=== PATIENT | female | born 1975 | race African-American/Black ===

== ENCOUNTER 2019-11-30 16:35 | Emergency (ER) | payer OTHER ==
[~2019-11-30] VITALS: Ht 162.6 cm; Wt 65.8 kg
[2019-11-30 19:03] VITALS: BP 124/91
== END 2019-11-30 19:19 | disposition home or self-care (01) ==
LOC: ER 16:35
DX: H66.92 Otitis media, unspecified, left ear (principal); Z88.6 Allergy status to analgesic agent

== ENCOUNTER 2021-10-28 10:43 | Emergency (ER) | payer MEDICAID ==
[~2021-10-28] VITALS: Ht 162.6 cm; Wt 61.2 kg
[2021-10-28 15:20] VITALS: BP 138/82
== END 2021-10-28 15:23 | disposition home or self-care (01) ==
LOC: ER 10:43
DX: J06.9 Acute upper respiratory infection, unspecified (principal); I10 Essential (primary) hypertension; Z88.8 Allergy status to other drugs, medicaments and biological substances; Z20.822 Contact with and (suspected) exposure to COVID-19
CPT/HCPCS: 36415; 87426; 93005

== ENCOUNTER 2021-11-11 06:42 | Emergency (ER) | payer MEDICAID ==
[~2021-11-11] VITALS: Ht 162.6 cm; Wt 61.2 kg
[2021-11-11 08:20] VITALS: BP 145/105
[2021-11-11] MEDS ORDERED: AMOX-277 PO (08:20)
[2021-11-11] MEDS ORDERED: BENZ100C19 PO (08:20)
[2021-11-11] MEDS ORDERED: LISINOPRIL 10 MG TAB PO ONE (08:30)
== END 2021-11-11 09:53 | disposition home or self-care (01) ==
LOC: ER 06:42
DX: J06.9 Acute upper respiratory infection, unspecified (principal); I10 Essential (primary) hypertension; Z20.822 Contact with and (suspected) exposure to COVID-19
CPT/HCPCS: 36415; 71045; 87426; 93005

== ENCOUNTER 2021-11-28 21:33 | Emergency (ER) | payer MEDICAID ==
[~2021-11-28] VITALS: Ht 162.6 cm; Wt 61.2 kg
[~2021-11-28 21:33] MED LIST: AMOX-277 PO; BENZ100C19 PO
[2021-11-28 23:19] LABS: Basophils # (auto) 0 10 ^3/uL (0-0.2); Basophils % (auto) 0.6 % (0.0-2.0); Eosinophils # (auto) 0.2 10 ^3/uL (0-0.8); Eosinophils % (auto) 3.2 % (0.0-7.0); Hemoglobin 10.7 g/dL (12.2-16.2); Lymphocytes # (auto) 2.3 10 ^3/uL (0.4-5.4); Lymphocytes % (auto) 35.1 % (10.0-50.0); Mean Corpuscular Hemoglobin 23.6 pg (28.0-32.0); Mean Corpuscular Hgb Conc. 31.6 g/dL (32.0-36.0); Mean Corpuscular Volume 74.7 fL (80.0-100.0); Monocytes # (auto) 0.5 10 ^3/uL (0-1.3); Monocytes % (auto) 7.6 % (0.0-12.0); Neutrophils # (auto) 3.5 10 ^3/uL (1.6-8.6); Neutrophils % (auto) 53.5 % (37.0-80.0); Nucleated Red Blood Cells % 0.1 %; Red Blood Cells 4.54 10^6/uL (4.0-5.20); Red Cell Distribution Width 18.3 % (11.8-14.3); White Blood Cell 6.5 10^3/uL (4.4-10.8)
[2021-11-28 23:34] LABS: Albumin 3.9 g/dL (3.4-5.0); Calcium 9.1 mg/dL (8.5-10.1); Magnesium 3.1 mg/dL (1.6-2.6); Potassium 3.4 mmol/L (3.5-5.1)
[2021-11-28 23:41] LABS: BUN/Creatinine Ratio 11.6; Bilirubin, Total 0.4 mg/dL (0.2-1.0)
[2021-11-29 08:22] LABS: Urine Bacteria NONE SEEN /hpf (None Seen); Urine Blood 3+ /uL (Negative); Urine Mucus MODERATE (None Seen); Urine Specific Gravity 1.023 (1.001-1.035); Urine WBC 331 /hpf (0 - 5); Urine WBC Clumps PRESENT /hpf (None Seen)
[2021-11-29] MEDS ORDERED: PERCOT PO (08:43)
[2021-11-29 09:00] VITALS: BP 138/104
== END 2021-11-29 09:26 | disposition home or self-care (01) ==
LOC: ER 21:35
DX: R07.89 Other chest pain (principal); M25.532 Pain in left wrist; M25.531 Pain in right wrist; I10 Essential (primary) hypertension; Z79.2 Long term (current) use of antibiotics; Z79.899 Other long term (current) drug therapy; Z88.8 Allergy status to other drugs, medicaments and biological substances
CPT/HCPCS: 36415; 71045; 80053; 81001; 83735; 84443; 84484; 85025; 93005

== ENCOUNTER 2021-12-30 12:44 | Emergency (ER) | payer MEDICAID ==
[~2021-12-30] VITALS: Ht 162.6 cm; Wt 61.2 kg
[~2021-12-30 12:44] MED LIST changes: +PERCOT PO
[2021-12-30] MEDS ORDERED: methylPREDNISolone SOD SUCC 125 MG/2 ML VL IM ONE (14:15)
[2021-12-30] MEDS ORDERED: cefTRIAXone SOD 1,000 MG VL IM ONE (14:15)
[2021-12-30] MEDS ORDERED: BENZ100C19 PO (14:21)
[2021-12-30] MEDS ORDERED: AMOX-277 PO (14:21)
[2021-12-30 14:22] VITALS: BP 144/99
== END 2021-12-30 14:53 | disposition home or self-care (01) ==
LOC: ER 12:44
DX: J06.9 Acute upper respiratory infection, unspecified (principal); Z20.822 Contact with and (suspected) exposure to COVID-19
CPT/HCPCS: 36415; 71045; 87426; 93005; 96372; 99285; J0696; J2930

== ENCOUNTER 2022-09-22 15:15 | Emergency (ER) | payer MEDICAID | END 2022-09-22 17:23 | disposition left against medical advice (07) | LOC: ER 15:15 | DX: R05.9 Cough, unspecified (principal); Z53.21 Procedure and treatment not carried out due to patient leaving prior to being seen by health care provider ==

== ENCOUNTER 2023-05-28 06:14 | Emergency (ER) | payer MEDICAID ==
[~2023-05-28] VITALS: Ht 162.6 cm; Wt 61.0 kg
[~2023-05-28 06:14] MED LIST changes: -AMOX-277 PO; +AMOX875T4 PO
[2023-05-28] MEDS ORDERED: DEXT1SYP9 PO (07:48)
[2023-05-28] MEDS ORDERED: AZIT500T PO (07:48)
[2023-05-28 08:11] VITALS: BP 155/113; PULSE 83; RESP 18; TEMP 98.4; O2SAT 100
== END 2023-05-28 08:18 | disposition home or self-care (01) ==
LOC: ER 06:14
DX: B34.9 Viral infection, unspecified (principal); I10 Essential (primary) hypertension; Z98.890 Other specified postprocedural states

== ENCOUNTER 2025-04-13 11:34 | Inpatient (IN) | payer MEDICAID ==
[~2025-04-13] VITALS: Ht 167.6 cm; Wt 60.0 kg
[~2025-04-13 11:34] MED LIST changes: +AZIT500T PO; +DEXT1SYP9 PO
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
[2025-04-13 12:21] LABS: Urine Bacteria FEW /hpf (None Seen); Urine Blood Negative /uL (Negative); Urine Budding Yeast OCCASIONAL /hpf (None Seen); Urine Clarity Clear (Clear); Urine Color Colorless (Yellow); Urine Protein, UAD Negative (Negative); Urine Specific Gravity 1.003 (1.001-1.035); Urine Squamous Epithelial Cell FEW /hpf (<5); Urine Urobilinogen Normal (Negative); Urine WBC < 1 /HPF (0-5)
[2025-04-13 13:02] LABS: Eosinophils # (auto) 0 10 ^3/uL (0-0.8); Eosinophils % (auto) 0.1 % (0.0-7.0); Lymphocytes # (auto) 1.8 10 ^3/uL (0.4-5.4)
[2025-04-13 13:04] LABS: Basophils # (auto) 0 10 ^3/uL (0-0.2); Basophils % (auto) 0.3 % (0.0-2.0); Hematocrit 32.8 % (36.0-46.0); Hemoglobin 10.1 g/dL (12.2-16.2); Lymphocytes % (auto) 16.7 % (10.0-50.0); Mean Corpuscular Hemoglobin 21.1 pg (28.0-32.0); Mean Corpuscular Hgb Conc. 30.7 g/dL (32.0-36.0); Mean Corpuscular Volume 68.9 fL (80.0-100.0); Monocytes # (auto) 0.7 10 ^3/uL (0-1.3); Neutrophils # (auto) 8.5 10 ^3/uL (1.6-8.6); Neutrophils % (auto) 76.9 % (37.0-80.0); Nucleated Red Blood Cells % 0.1 %; Platelet Count (auto) 303 10^3/uL (140-450); Red Blood Cells 4.77 10^6/uL (4.0-5.20)
[2025-04-13 13:12] LABS: Chloride 105 mmol/L (98-107); Potassium 3.6 mmol/L (3.5-5.1); Sodium 139 mmol/L (136-145)
[2025-04-13 13:13] LABS: Anion Gap 10 (5-15); Carbon Dioxide 24 mmol/L (20-31)
[2025-04-13 13:17] LABS: Calcium 10.5 mg/dL (8.7-10.4)
[2025-04-13 13:18] LABS: BUN/Creatinine Ratio 9.2 (10.0-20.0); Blood Urea Nitrogen 8 mg/dL (9-23); Glucose 99 mg/dL (74-106)
--- NOTE | 2025-04-13 13:41 | DVH ---
EXAM: CT CT AB PEL WO CON-NO ORAL OR IV INDICATION: pain TECHNIQUE: Volumetric multidetector CT images of the abdomen and pelvis were obtained without contras t. All CT scans at this facility use dose modulation, iterative reconstruction, and/or weight based d osing when appropriate to reduce radiation dose to as low as reasonably achievable. COMPARISON: None FINDINGS: [LOWER CHEST]: The partially visualized lung bases are clear without a pleural effusion. The cardiac size is normal without pericardial effusion. [LIVER]: Normal hepatic size without suspicious focal lesion. [GALLBLADDER AND BILIARY TREE]: No cholelithiasis. [SPLEEN]: Unremarkable. [PANCREAS]: Unremarkable. [ADRENAL GLANDS]: Unremarkable. [KIDNEYS]: No hydronephrosis. No nephroureterolithiasis. No suspicious focal lesion. [BLADDER]: Unremarkable for the degree of distention. [REPRODUCTIVE ORGANS]: Unremarkable. [BOWEL/MESENTERY]: Stomach is normal. No CT evidence of bowel obstruction. Normal appendix. [ASCITES]: Absent. [LYMPHADENOPATHY]: No pathologically enlarged lymph nodes by CT size criteria. [VASCULATURE]: No aneurysmal dilatation. [ABDOMINAL WALL]: Unremarkable. [MUSCULOSKELETAL]: No acute fracture or aggressive focal osseous lesion. Multifocal degenerative rader ge of the visualized spine. IMPRESSION: 1. No acute abdominal finding.
[2025-04-13 15:53] VITALS: PULSE 76; RESP 20; O2SAT 98
[2025-04-13] MEDS: cloNIDine HCL 0.1 MG TAB PO ONE (16:39)
[2025-04-13] MEDS: SODIUM CHLORIDE 0.9% 500 ML IV ONE (16:40)
[2025-04-13] MEDS ORDERED: ONDANSETRON HCL 4 MG/2 ML VIAL IV PRN (18:30)
[2025-04-13] MEDS ORDERED: HYDROcodone-ACET 5/325MG TAB PO PRN (18:30)
[2025-04-13] MEDS ORDERED: ACETAMINOPHEN 325 MG TAB PO PRN (18:30)
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
[2025-04-13] MEDS: LACTATED RINGER'S 1,000 ML IV ONE (18:50)
[2025-04-13 19:15] LABS: % Iron Saturation 5.4 % (15-50)
[2025-04-13 19:45] LABS: Basophils # (auto) 0 10 ^3/uL (0-0.2); Basophils % (auto) 0.2 % (0.0-2.0); Eosinophils # (auto) 0 10 ^3/uL (0-0.8); Eosinophils % (auto) 0.4 % (0.0-7.0); Hematocrit 29.6 % (36.0-46.0); Hemoglobin 9.4 g/dL (12.2-16.2); Lymphocytes # (auto) 2.4 10 ^3/uL (0.4-5.4); Lymphocytes % (auto) 22.5 % (10.0-50.0); Mean Corpuscular Hemoglobin 21.6 pg (28.0-32.0); Mean Corpuscular Hgb Conc. 31.9 g/dL (32.0-36.0); Mean Corpuscular Volume 67.9 fL (80.0-100.0); Monocytes # (auto) 0.8 10 ^3/uL (0-1.3); Neutrophils # (auto) 7.5 10 ^3/uL (1.6-8.6); Neutrophils % (auto) 69.9 % (37.0-80.0); Platelet Count (auto) 256 10^3/uL (140-450); Red Blood Cells 4.35 10^6/uL (4.0-5.20); Red Cell Distribution Width 19.2 % (11.8-14.3); White Blood Cell 10.7 10^3/uL (4.4-10.8)
[2025-04-13 19:49] VITALS: PULSE 100; RESP 18; O2SAT 96
[2025-04-13] MEDS: SODIUM CHLOR 0.9% PF (SALINE LOCK) 10ML VIAL/SYR IV SCH (21:34)
[2025-04-14 03:02] LABS: Basophils # (auto) 0 10 ^3/uL (0-0.2); Eosinophils # (auto) 0.1 10 ^3/uL (0-0.8); Hemoglobin 9.2 g/dL (12.2-16.2); Mean Corpuscular Hemoglobin 21.6 pg (28.0-32.0); Mean Corpuscular Volume 68.7 fL (80.0-100.0); Monocytes # (auto) 0.6 10 ^3/uL (0-1.3); White Blood Cell 8.9 10^3/uL (4.4-10.8)
[2025-04-14 03:04] LABS: Basophils % (auto) 0.3 % (0.0-2.0); Eosinophils % (auto) 1.4 % (0.0-7.0); Hematocrit 29.3 % (36.0-46.0); Lymphocytes # (auto) 2.4 10 ^3/uL (0.4-5.4); Mean Corpuscular Hgb Conc. 31.4 g/dL (32.0-36.0); Monocytes % (auto) 7.1 % (0.0-12.0); Neutrophils # (auto) 5.7 10 ^3/uL (1.6-8.6); Neutrophils % (auto) 64.2 % (37.0-80.0); Platelet Count (auto) 252 10^3/uL (140-450); Red Blood Cells 4.26 10^6/uL (4.0-5.20); Red Cell Distribution Width 18.9 % (11.8-14.3)
[2025-04-14 03:26] LABS: Alanine Aminotransferase 12 U/L (7-40); Albumin 3.7 g/dL (3.2-4.8); Alkaline Phosphatase 57 U/L (46-116); Anion Gap 10 (5-15); Aspartate Aminotransferase 23 U/L (<34); BUN/Creatinine Ratio 8.8 (10.0-20.0); Bilirubin, Total 0.8 mg/dL (0.2-1.0); Calcium 9.1 mg/dL (8.7-10.4); Carbon Dioxide 21 mmol/L (20-31); Glucose 90 mg/dL (74-106); Sodium 140 mmol/L (136-145); Total Protein 6.4 g/dL (5.7-8.2)
[2025-04-14 03:27] LABS: Blood Urea Nitrogen 7 mg/dL (9-23); Chloride 109 mmol/L (98-107); Potassium 3.5 mmol/L (3.5-5.1)
[2025-04-14 08:29] VITALS: PULSE 56; RESP 16; O2SAT 98
[2025-04-14] MEDS: PANTOPRAZOLE 40 MG/10 ML VIAL INJ IV SCH (09:58)
[2025-04-14 13:36] LABS: Basophils # (auto) 0 10 ^3/uL (0-0.2); Basophils % (auto) 0.4 % (0.0-2.0); Eosinophils # (auto) 0.1 10 ^3/uL (0-0.8); Eosinophils % (auto) 0.9 % (0.0-7.0); Hematocrit 31.6 % (36.0-46.0); Hemoglobin 9.6 g/dL (12.2-16.2); Lymphocytes # (auto) 2.1 10 ^3/uL (0.4-5.4); Lymphocytes % (auto) 20.1 % (10.0-50.0); Mean Corpuscular Hemoglobin 21.2 pg (28.0-32.0); Mean Corpuscular Hgb Conc. 30.3 g/dL (32.0-36.0); Mean Corpuscular Volume 70.1 fL (80.0-100.0); Monocytes # (auto) 0.6 10 ^3/uL (0-1.3); Monocytes % (auto) 5.9 % (0.0-12.0); Neutrophils # (auto) 7.6 10 ^3/uL (1.6-8.6); Neutrophils % (auto) 72.7 % (37.0-80.0); Nucleated Red Blood Cells % 0.1 %; Platelet Count (auto) 246 10^3/uL (140-450); Red Blood Cells 4.52 10^6/uL (4.0-5.20); Red Cell Distribution Width 19.3 % (11.8-14.3); White Blood Cell 10.5 10^3/uL (4.4-10.8)
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
--- NOTE | 2025-04-14 15:48 | DVHPN2 ---
Subjective Patient reporting rectal bleeding several hours ago. Reviewed: Care Plan, H&P, Labs, Medications Changes from previous H/P or p: No Changes General: Per HPI Objective Vitals Vital Signs Date Time Temp Pulse Resp B/P (MAP) Pulse Ox O2 Delivery O2 Flow Rate FiO2 04/14/25 12:00 65 17 134/91 (105) 99 04/14/25 08:29 Room Air* 0 21 04/14/25 07:30 98.0 98.0 General Appearance: Alert, Oriented X3, Cooperative, No acute distress HEENT: Atraumatic, PERRLA Lungs: Clear to auscultation, Normal air movement Cardiovascular: Normal S1, Normal S2 Abdomen: Normal bowel sounds, Soft, No tenderness Musculoskeletal: Normal sensory function, Normal motor function Skin: Dry, Intact Psych/Mental Status: Mental status NL, Mood NL Medications Current Medications Medications Dose Ordered Sig/[place] Route Start Time Stop Time Status Last Admin Dose Admin Pantoprazole Sodium 40 mg DAILY IV 04/14/25 10:00 04/14/25 09:58 40 MG Sodium Chloride 10 ml Q8HR IV 04/13/25 22:00 04/14/25 05:10 10 ML Acetaminophen 650 mg Q6HP PRN PO 04/13/25 18:30 Acetaminophen/ Hydrocodone Bitart 1 tab Q4HP PRN PO 04/13/25 18:30 Ondansetron HCl 4 mg Q4HP PRN IV 04/13/25 18:30 Laboratory Results Laboratory Tests 04/14/25 02:20 04/14/25 12:25 Chemistry Test 04/14/25 02:20 Albumin 3.7 g/dL (3.2-4.8) Calcium Level 9.1 mg/dL (8.7-10.4) Total Protein 6.4 g/dL (5.7-8.2) LFT Test 04/14/25 02:20 Alanine Aminotransferase (ALT) 12 U/L (7-40) Alkaline Phosphatase 57 U/L (46-116) Aspartate Amino Transferase (AST) 23 U/L (<34) Total Bilirubin 0.8 mg/dL (0.2-1.0) Urinalysis Test 04/13/25 11:53 Urine Color Colorless (Yellow) Urine Clarity Clear (Clear) Urine pH 6.0 (5.0-9.0) Urine Specific [place] 1.003 (1.001-1.035) Urine Protein Negative (Negative) Urine Ketones 1+ (Negative) H Urine Blood Negative /uL (Negative) Urine Nitrite Negative (Negative) Urine Bilirubin Negative (Negative) Urine Urobilinogen Normal mg/dL (Negative) Urine Leukocyte Esterase Negative /uL (Negative) Urine RBC <1 /hpf (0 - 4) Urine Microscopic WBC < 1 /HPF (0-5) Urine Squamous Epithelial Cells Few /hpf (<5) Urine Bacteria Few /hpf (None Seen) H Urine Yeast (Budding) Occasional /hpf (None Urine Glucose Normal mg/dL (Normal) Labs and/or images reviewed: Labs reviewed by me, Image(s) reviewed by me Assessment/Plan Assessment/Plan Impression: -rectal bleeding -primary hypertension -recent right carpal tunnel release surgery -microcytic, hypochromic anemia Plan: -GI consultation: Plans for colonoscopy tomorrow -restart antihypertensives -pain management -continue clear liquid diet -continue with bowel prep -repeat labs in a.m. Total time spent with patient discussing and formulating plan of care: 35 minutes. This medical document was created using an electronic medical record system with [employer] dictation system. Although this document has been carefully reviewed, there may still be some phonetic and typographical errors. These areas are purely typographical due to imperfections of the software programs, and do not reflect any compromise in the patient's medical care. Plan discussed with: Patient, Other (RN) My Orders Orders - MIHAELA SHOEMAKER NP Procedure Category Date Status Time Hydrocodone-Acet PHA 04/14/25 Verified 5/325mg Tab ([place] 15:45 Amlodipine Tablet PHA 04/15/25 Verified (Norvasc Tablet) 10:00 Date of Service: Apr 14, 2025 Billing Provider: MIHAELA SHOEMAKER NP Common Visit Codes: [id number] INP/OBS CARE(HIGH) MIHAELA SHOEMAKER NP Apr 14, 2025 15:48
[2025-04-14 16:23] LABS: INR 1.06 (0.9-1.15); Prothrombin Time 11.2 sec (9.3-11.8)
[2025-04-14 17:00] VITALS: BP 166/101; PULSE 73; RESP 18; TEMP 98.1; O2SAT 97
[2025-04-14] MEDS ORDERED: TIZA1TAB20 PO (17:22)
[2025-04-14] MEDS ORDERED: HYDR-3682 PO (17:22)
[2025-04-14] MEDS ORDERED: AMLO1TAB22 PO (17:22)
[2025-04-14] MEDS: GOLYTELY 4L KIT PO ONE (17:56)
[2025-04-14 18:00] VITALS: BP 151/102
[2025-04-14 19:26] LABS: Basophils # (auto) 0.1 10 ^3/uL (0-0.2); Basophils % (auto) 0.9 % (0.0-2.0); Eosinophils # (auto) 0.1 10 ^3/uL (0-0.8); Eosinophils % (auto) 0.9 % (0.0-7.0); Hematocrit 34.6 % (36.0-46.0); Hemoglobin 10.7 g/dL (12.2-16.2); Lymphocytes # (auto) 2.2 10 ^3/uL (0.4-5.4); Lymphocytes % (auto) 19.3 % (10.0-50.0); Mean Corpuscular Hemoglobin 21.2 pg (28.0-32.0); Mean Corpuscular Hgb Conc. 30.8 g/dL (32.0-36.0); Mean Corpuscular Volume 68.9 fL (80.0-100.0); Monocytes # (auto) 0.5 10 ^3/uL (0-1.3); Monocytes % (auto) 4.4 % (0.0-12.0); Neutrophils # (auto) 8.6 10 ^3/uL (1.6-8.6); Neutrophils % (auto) 74.5 % (37.0-80.0); Platelet Count (auto) 282 10^3/uL (140-450); Red Blood Cells 5.03 10^6/uL (4.0-5.20); Red Cell Distribution Width 19.5 % (11.8-14.3); White Blood Cell 11.5 10^3/uL (4.4-10.8)
[2025-04-14 19:30] VITALS: PULSE 102; RESP 16; O2SAT 99
[2025-04-14] MEDS: hydrALAZINE HCL 20 MG/ML VL IV PRN (22:09)
[2025-04-14] MEDS ORDERED: cloNIDine 0.1 mg/24hr 7 DAY PATCH TD PRN (23:30)
[2025-04-15] VITALS (7 sets, daily range): BP systolic 140–172; BP diastolic 89–109; PULSE 73–102; RESP 17–20; TEMP 97.6–98.9; O2SAT 97–100
[2025-04-15] MEDS ORDERED: HYDR-4902 PO (04:16)
[2025-04-15] MEDS: MAGNESIUM CITRATE SOLUTION 300 ML BTL PO ONE (06:38)
[2025-04-15] MEDS: GOLYTELY 4L KIT PO ONE (06:39)
--- NOTE | 2025-04-15 08:42 | DVH ---
CHEST RADIOGRAPH Indication: pre procedure Technique: Single frontal view of the chest was obtained COMPARISON: CHEST XRAY 1 VIEW on DOS: 12/30/21, CHEST PORTABLE on DOS: 11/28/21, CHEST XRAY 1 VIEW on DOS : 11/11/21 FINDINGS: Lines and Tubes: None Lungs: Clear Pleura: No effusion. No pneumothorax. Cardiomediastinal contours: Unremarkable Bones: Chronic appearing right chest wall deformity. IMPRESSION: No acute disease.
[2025-04-15 08:52] LABS: Basophils # (auto) 0 10 ^3/uL (0-0.2); Eosinophils # (auto) 0 10 ^3/uL (0-0.8); Eosinophils % (auto) 0.3 % (0.0-7.0); Hemoglobin 10.3 g/dL (12.2-16.2); Monocytes # (auto) 0.7 10 ^3/uL (0-1.3); Monocytes % (auto) 6.4 % (0.0-12.0); Red Cell Distribution Width 19.1 % (11.8-14.3)
[2025-04-15 08:55] LABS: Basophils % (auto) 0.4 % (0.0-2.0); Hematocrit 32.8 % (36.0-46.0); Lymphocytes # (auto) 1.8 10 ^3/uL (0.4-5.4); Lymphocytes % (auto) 15.5 % (10.0-50.0); Mean Corpuscular Hemoglobin 21.4 pg (28.0-32.0); Mean Corpuscular Hgb Conc. 31.4 g/dL (32.0-36.0); Mean Corpuscular Volume 68.2 fL (80.0-100.0); Neutrophils % (auto) 77.4 % (37.0-80.0); Nucleated Red Blood Cells % 0.1 %; Platelet Count (auto) 287 10^3/uL (140-450); Red Blood Cells 4.81 10^6/uL (4.0-5.20); White Blood Cell 11.7 10^3/uL (4.4-10.8)
[2025-04-15 09:07] LABS: Alanine Aminotransferase 12 U/L (7-40); Albumin 4.6 g/dL (3.2-4.8); Alkaline Phosphatase 71 U/L (46-116); Anion Gap 17 (5-15); Aspartate Aminotransferase 22 U/L (<34); BUN/Creatinine Ratio 14.5 (10.0-20.0); Bilirubin, Total 0.6 mg/dL (0.2-1.0); Blood Urea Nitrogen 11 mg/dL (9-23); Calcium 10.3 mg/dL (8.7-10.4); Chloride 106 mmol/L (98-107); Sodium 141 mmol/L (136-145); Total Protein 7.7 g/dL (5.7-8.2)
[2025-04-15 09:17] LABS: Carbon Dioxide 18 mmol/L (20-31); Glucose 73 mg/dL (74-106); Potassium 3.2 mmol/L (3.5-5.1)
[2025-04-15] MEDS: amLODIPine BESYLATE 5 MG TAB PO SCH (10:29)
[2025-04-15] MEDS: HYDROcodone-ACET 5/325MG TAB PO PRN (10:34)
[2025-04-15] MEDS ORDERED: fentaNYL CITRATE 100 MCG/2 ML VL ONE (13:24)
[2025-04-15] MEDS ORDERED: MIDAZOLAM HCL 2MG/2ML 2ml VIAL (1mg/ml) ONE (13:24)
[2025-04-15] MEDS ORDERED: DexAMETHasone SOD PHOS 10MG/1ML VIAL INJ ONE (13:27)
[2025-04-15] MEDS ORDERED: PROPOFOL 10 MG/ML 20 ML IV ONE (13:28)
--- NOTE | 2025-04-15 14:15 | DVHOP2 ---
Operative Report DATE OF OPERATION: 04/15/25 PROCEDURE: Colonoscopy with biopsy. PREOPERATIVE INDICATION: The patient is a 49 -year-old female undergoing colonoscopy for rectal bleeding POSTOPERATIVE DIAGNOSES: 1. Juhaitlw-[id number] acute ischemic colitis extending from 35-55 cm above the anal verge involving the splenic flexure and proximal descending colon with extensive ulceration hyperemia erythema and spasm 2. Trace internal hemorrhoids otherwise completely normal colonoscopy examination up to the cecum and terminal ileum PROCEDURE PERFORMED BY: Luis Young M.D. SCOPE: Olympus videocolonoscope. ASA CLASS: 2. PREOPERATIVE MEDICATIONS: Mac Dr. Howard flores PROCEDURE IN DETAIL: After obtaining an informed consent, the patient was placed on left lateral decubitus position. She was then sedated with the above medications. A rectal examination was performed that was normal. The colonoscope was then passed through the anus into the rectosigmoid and through the descending, transverse, and ascending colon up to the cecum with visualization of the appendiceal orifice, base of the cecum and the ileocecal valve. The colonoscope was then withdrawn. Distal 5-10 cm of the terminal ileum were normal No polyps or masses were seen. There was no clear-cut diverticular disease. Patient had an area of acute inflammation the splenic flexure and the proximal descending colon consistent with the acute ischemic colitis There was extensive areas of ulceration hyperemia spasm and inflammation from which biopsies were obtained Rectosigmoid area were normal. On retroflexion she had trace internal hemorrhoids The patient tolerated the procedure well without difficulty. WITHDRAWAL TIME: 8 minutes QUALITY OF THE PREP: [place] Bowel Prep score: 9. COMPLICATIONS : None SPECIMENS: Descending colon biopsies DISPOSITION: Transfer back to the floor Stable PLAN: 1. Repeat colonoscopy base on biopsy result likely in 7-10 years 2. Resume full liquid diet advance as tolerated 3. Increase fluid and fiber intake; avoid dehydration and substance abuse 4. Outpatient follow up with me in 4-6 weeks to review results and discuss further management LUIS YOUNG MD Apr 15, 2025 14:15
[2025-04-15] MEDS ORDERED: FER325T PO (15:47)
--- NOTE | 2025-04-15 15:47 | DVHDS2 ---
Discharge Summary Date of Admission Apr 13, 2025 at 18:30 Date of Discharge: Apr 15, 2025 Admitting Diagnosis Constipation Labs/Diagnostic Data: Laboratory Results Test 04/15/25 08:20 04/14/25 15:57 04/14/25 12:25 04/13/25 12:51 White Blood Count 11.7 10^3/uL (4.4-10.8) Red Blood Count 4.81 10^6/uL (4.0-5.20) Hemoglobin 10.3 g/dL (12.2-16.2) Hematocrit 32.8 % (36.0-46.0) Mean Corpuscular Volume 68.2 fL (80.0-100.0) Mean Corpuscular Hemoglobin 21.4 pg (28.0-32.0) Mean Corpuscular Hemoglobin Concent 31.4 g/dL (32.0-36.0) Red Cell Distribution Width 19.1 % (11.8-14.3) Platelet Count 287 10^3/uL (140-450) Mean Platelet Volume 7.0 fL (6.9-10.8) Neutrophils (%) (Auto) 77.4 % (37.0-80.0) Lymphocytes (%) (Auto) 15.5 % (10.0-50.0) Monocytes (%) (Auto) 6.4 % (0.0-12.0) Eosinophils (%) (Auto) 0.3 % (0.0-7.0) Basophils (%) (Auto) 0.4 % (0.0-2.0) Neutrophils # (Auto) 9.0 10 ^3/uL (1.6-8.6) Lymphocytes # (Auto) 1.8 10 ^3/uL (0.4-5.4) Monocytes # (Auto) 0.7 10 ^3/uL (0-1.3) Eosinophils # (Auto) 0 10 ^3/uL (0-0.8) Basophils # (Auto) 0 10 ^3/uL (0-0.2) Nucleated Red Blood Cells 0.1 % Sodium Level 141 mmol/L (136-145) Potassium Level 3.2 mmol/L (3.5-5.1) Chloride Level 106 mmol/L (98-107) Carbon Dioxide Level 18 mmol/L (20-31) Anion Gap 17 (5-15) Blood Urea Nitrogen 11 mg/dL (9-23) Creatinine 0.76 mg/dL (0.550-1.02) Glomerular Filtration Rate Calc 97 mL/min (>90) BUN/Creatinine Ratio 14.5 (10.0-20.0) Serum Glucose 73 mg/dL (74-106) Calcium Level 10.3 mg/dL (8.7-10.4) Total Bilirubin 0.6 mg/dL (0.2-1.0) Aspartate Amino Transferase (AST) 22 U/L (<34) Alanine Aminotransferase (ALT) 12 U/L (7-40) Alkaline Phosphatase 71 U/L (46-116) Total Protein 7.7 g/dL (5.7-8.2) Albumin 4.6 g/dL (3.2-4.8) Beta HCG, Quantitative 2.2 mIU/mL (1.5-4.2) Prothrombin Time 11.2 sec (9.3-11.8) Prothrombin Time INR 1.06 (0.9-1.15) Carcinoembryonic Antigen 0.58 ng/mL (<=5.0) Iron Level 24 ug/dL (50-170) Total Iron Binding Capacity 442 ug/dL (250-425) Percent Iron Saturation 5.4 % (15-50) Ferritin 2.8 ng/mL (10-291) Test 04/13/25 11:53 Urine Color Colorless (Yellow) Urine Clarity Clear (Clear) Urine pH 6.0 (5.0-9.0) Urine Specific [place] 1.003 (1.001-1.035) Urine Protein Negative (Negative) Urine Ketones 1+ (Negative) Urine Blood Negative /uL (Negative) Urine Nitrite Negative (Negative) Urine Bilirubin Negative (Negative) Urine Urobilinogen Normal mg/dL (Negative) Urine Leukocyte Esterase Negative /uL (Negative) Urine RBC <1 /hpf (0 - 4) Urine Microscopic WBC < 1 /HPF (0-5) Urine Squamous Epithelial Cells Few /hpf (<5) Urine Bacteria Few /hpf (None Seen) Urine Yeast (Budding) Occasional /hpf (None Urine Glucose Normal mg/dL (Normal) Other Laboratory Tests 04/15/25 08:20 Brief Hx & Hospital Course: History of Present Illness 49 y/o F, with PMHx of HTN and anemia presents to the ED for CC of blood in stool. Patient states, that she has been experiencing symptoms of nausea and vomiting with associated constipation onset, last night (04/12/25). Patient reports, symptoms worsening as of this morning (04/13/25) with blood in stool; patient endorses straining when having a BM last night which might be cause of symptoms. Patient relays, slight abdominal cramping. Patient denies ever being transfused in the past. Patient denies dizziness, headache, fever, chills, or . No other symptoms or modifying factors present at this time. Course of hospitalization: Patient was placed on clear liquid diet. Pain management was implemented. GI consultation was placed. Patient underwent bowel prep, colonoscopy this evening. Patient was found to have acute ischemic colitis. Patient was also found to have iron-deficiency anemia. Patient has been cleared to be discharged home I Gastroenterology. She will follow up Dr. Young in 3-4 weeks. She will be placed on iron supplementation at home. Patient was also educated in the to increase fiber and liquid intake at home. Patient will follow up with PCP in 1- 2 weeks. All questions answered. Physical examination General: Alert and Oriented x3. No acute distress. Well-nourished. Eyes: EOMI. Anicteric. HENT: Moist mucous membranes. Lungs: Clear to auscultation bilaterally. No accessory muscle use. Cardiovascular: Regular rate and rhythm. No murmur. No JVD. Abdomen: Soft, non-tender and non-distended. No palpable masses. Extremities: No edema. Non-tender. Skin: No rashes or lesions. Warm. Neurologic: No focal neurological deficits. CN II-XII grossly intact, but not individually tested. Psychiatric: Cooperative. Appropriate mood and affect. Total time spent with patient discussing and formulating plan of care: 35 minutes. This medical document was created using an electronic medical record system with [employer] dictation system. Although this document has been carefully reviewed, there may still be some phonetic and typographical errors. These areas are purely typographical due to imperfections of the software programs, and do not reflect any compromise in the patient's medical care. Condition at Discharge: Fair Final Diagnosis/Problems List Acute ischemic colitis Secondary diagnosis: -rectal bleeding -primary hypertension -recent right carpal tunnel release surgery -microcytic, hypochromic anemia Discharge Disposition: Home Discharge Instruct/Medications Diet: Regular Activity: No Restrictions, As Tolerated Activity comment: Recommend to increase water and fiber intake Follow Up/Referral: Follow up with Dr. Domi Young in 3-4 weeks Follow up with the PCP in 1-2 weeks Medications: Ferrous sulfate 325 mg p.o. b.i.d. Continue home medications 36 Discharge Statement: "Patient was advised to return to the ER or call 911 if any headaches, dizziness, shortness of breath, chest pain, abdominal pain, bleeding, fevers, or worsening of medical condition. Patient was counseled about treatment plan, medications, possible side effects, patientverbalized understanding. All questions were answered to the best of my ability. This discharge took greater then 30 minutes in planning, reviewing documentation, counseling the patient, and discussing with other team members." ASSESSMENT ASSESSMENT Assessment Acute ischemic colitis Date of Service: Apr 15, 2025 Billing Provider: MHIAELA SHOEMAKER NP Common Visit Codes: [id number] INP/OBS CARE(HIGH) MIHAELA SHOEMAKER NP Apr 15, 2025 15:47
== END 2025-04-15 19:55 | disposition home or self-care (01) | DRG 246 ==
LOC: ER 11:34 → OVERFLOW 18:30 → WEST WING 04-15 01:50
PROVIDERS: ADMIT Nurse Practitioner Acute Care; ATTEND Nurse Practitioner Acute Care
PROC: 0DBM8ZX Excision of Descending Colon, Via Natural or Artificial Opening Endoscopic, Diagnostic (ICD-10-PCS; principal; 2025-04-15 13:28)
DX: K55.039 Acute (reversible) ischemia of large intestine, extent unspecified (principal); K63.3 Ulcer of intestine; K59.00 Constipation, unspecified; D50.9 Iron deficiency anemia, unspecified; I10 Essential (primary) hypertension; Z88.6 Allergy status to analgesic agent
CPT/HCPCS: 36415; 45380; 71045; 74176; 80048; 80053; 81001; 82378; 82728; 83540; 83550; 84702; 85025; 85610; 86850; 86900; 86901; 96360; G0378; J1100; J2250; J2470; J2704

== ENCOUNTER 2025-06-30 21:44 | Emergency (ER) | payer MEDICAID ==
[~2025-06-30] VITALS: Ht 71.1 cm; Wt 59.6 kg
[~2025-06-30 21:44] MED LIST changes: +AMLO1TAB22 PO; +FER325T PO; +HYDR-3682 PO; +HYDR-4902 PO; +TIZA1TAB20 PO
[2025-06-30 22:12] LABS: Hemoglobin 9.9 g/dL (12.2-16.2); Nucleated Red Blood Cells % 0.0 %
--- NOTE | 2025-06-30 22:12 | ED.PDOC ---
HPI Comments 49-year-old female who came to ER for chest pains. Patient does have history of hypertension and anxiety. Recently had carpal tunnel surgery, and has been under a lot of stress since then. Since last night, patient has been experiencing substernal chest pains, intermittent, tight, nonradiating. Has been very anxious at this time of care. Blood pressure upon arrival was 167/111 mmHg Chief Complaint: Chest Pain Time Seen by MD: 22:11 Primary Care Provider: RENNY Reviewed Notes: Nurses Notes Allergies: Coded Allergies: Prochlorperazine (Verified Allergy, Unknown, 04/13/25) Home Meds Active Scripts Ferrous Sulfate (FERROUS SULFATE) 325 Mg Tb, 1 TAB PO BID for 30 Days, #60 TAB 3 Refills Prov:MIHAELA SHOEMAKER NP 04/15/25 Dextromethorphan-Guaifenesin (Robitussin-Dm) 10 Ml Sr, 10 ML PO TID for 10 Days, #300 SYP Prov:JU BOSE MD 05/28/23 Azithromycin (Zithromax) 500 Mg Tab, 1 TAB PO DAILY for 5 Days, #5 TAB Prov:JU BOSE MD 05/28/23 Benzonatate (Tessalon Perles) 100 Mg Cap, 1 CAP PO TID PRN, #30 CAP 0 Refills Prov:MICHAEL MARSH 12/30/21 Amoxicillin & Pot Clavulanate (Amoxicillin/Potassium Cla) 875 Mg Tab, 1 TAB PO BID for 7 Days, #14 TAB 0 Refills Prov:MICHAEL MARSH 12/30/21 Oxycodone W/ Acetaminophen (Percocet 5/325MG) 1 Tab Tb, 1 TAB PO BID, #14 TAB Prov:ADOLFO STOLL MD 11/29/21 Benzonatate (Tessalon Perles) 100 Mg Cap, 1 CAP PO TID PRN, #30 CAP 0 Refills Prov:MICHAEL MARSH 11/11/21 Amoxicillin & Pot Clavulanate (Amoxicillin/Potassium Cla) 875 Mg Tab, 1 TAB PO BID for 10 Days, #20 TAB 0 Refills Prov:MICHAEL MARSH 11/11/21 Reported Medications Hydrocodone-Acetaminophen (Hydrocodone Bitartrate/AC 5-325 mg) 1 Tab Tab, 1 TAB PO TID, TAB 04/15/25 Hydroxyzine Hcl (Hydroxyzine Hcl) 25 Mg Tab, 1 TAB PO Q6HPRN PRN for anxiety 04/14/25 Tizanidine Hydrochloride (Tizanidine Hcl) 2 Mg Tab, 1 TAB PO TID 04/14/25 Amlodipine Besylate (Amlodipine Besylate) 5 Mg Tab, 1 TAB PO BID 04/14/25 Information Source: Patient Mode of Arrival: Ambulatory Severity: Moderate Timing: Days Duration: Intermittent Prehospital treatment: None Location: Substernal Radiation: No Radiation Quality: Tightness Onset: With Light Exertion Cardiac Risk Factors: HTN Associated Signs and Symptoms: None Past Medical History PAST MEDICAL HISTORY: Anemia, Anxiety, HTN Surgical History: Surgical History (Other): Carpal tunnel surgery FURNITURE MECHANIC History: No Pertinent FURNITURE MECHANIC History Family History Family History: Reviewed,noncontributory to illness Social History Smoker: Non-Smoker Alcohol: Denies ETOH Use Drugs: Denies Drug Use Lives In: Home Constitutional: denies: chills, diaphoresis, fatigue, fever, malaise, sweats, weakness, others EENTM: denies: blurred vision, double vision, ear bleeding, ear discharge, ear drainage, ear pain, ear ringing, eye pain, eye redness, hearing loss, mouth pain, mouth swelling, nasal discharge, nose bleeding, nose congestion, nose pain, photophobia, tearing, throat pain, throat swelling, voice changes, others Respiratory: denies: cough, hemoptysis, orthopnea, SOB at rest, shortness of breath, SOB with excertion, stridor, wheezing, others Cardiovascular: reports: chest pain; denies: dizzy spells, diaphoresis, Dyspnea on exertion, edema, irregular heart beat, left arm pain, lightheadedness, palpitations, PND, syncope, others Gastrointestinal: denies: abdomen distended, abdominal pain, blood streaked bowels, constipated, diarrhea, dysphagia, difficulty swallowing, hematemesis, melena, nausea, poor appetite, poor fluid intake, rectal bleeding, rectal pain, vomiting, others Genitourinary: denies: abnormal vagina bleeding, burning, dyspareunia, dysuria, flank pain, frequency, hematuria, incontinence, pain, , vagina discharge, urgency, others Neurological: denies: dizziness, fainting, headache, left sided numbness, left sided weakness, numbness, paresthesia, pre-existing deficit, right sided numbness, right sided weakness, seizure, speech problems, tingling, tremors, weakness, others Musculoskeletal: denies: back pain, gout, joint pain, joint swelling, muscle pain, muscle stiffness, neck pain, others Integumetry: denies: bruises, change in color, change in hair/nails, dryness, laceration, lesions, lumps, rash, wounds, others Allergic/Immunocompromised: denies: Difficulty Healing, Frequent Infections, Hives, Itching, others Hematologic/Lymphatic: denies: anemia, blood clots, easy bleeding, easy bruising, swollen glands, others Endocrine: denies: excessive hunger, excessive sweating, excessive thirst, excessive urination, flushing, intolerance to cold, intolerance to heat, unexplained weight gain, unexplained weight loss, others Psychiatric: denies: anxiety, bipolar disorder, depression, hopeless, panic disorder, schizophrenia, sleepless, suicidal, others Physical Exam General Appearance: No Apparent Distress, Normal HEENT: Normal ENT Inspection, Pharynx Normal, TMs Normal Neck: Full Range of Motion, Non-Tender, Normal, Normal Inspection Respiratory: Chest Non-Tender, Lungs Clear, No Accessory Muscle Use, No Respiratory Distress, Normal Breath Sounds Cardiovascular: No Edema, No JVD, No Murmur, No Gallop, Normal Peripheral Pulses, Regular Rate/Rhythm Breast Exam: Deferred Gastrointestinal: No Organomegaly, Non Tender, No Pulsatile Mass, Normal Bowel Sounds, Soft Genitalia: Deferred Pelvic: Deferred Rectal: Deferred Extremities: No calf tenderness, Normal capillary refill, Normal inspection, Normal range of motion, Non-tender, No pedal edema Musculoskeletal : Apperance: Normal Neurologic: Alert, scale attendant II-XII nml as Tested, No Motor Deficits, Normal Affect, Normal Mood, No Sensory Deficits Cerebellar Function: Normal Reflexes: Normal Skin: Dry, Normal Color, Warm Lymphatic: No Adenopathy EKG EKG : Pulse Rate (adult): 86 Cardiac Rhythm: NSR Hypertrophy: LAE Was a procedure done? Was a procedure done?: No CP Differential Dx Differential Diagnosis: Angina, Anxiety / Panic Attack Differential Diagnosis: CHF, HTN Essential Differential Diagnosis: Angina, Chest Wall Pain, Costochondritis, Esophageal reflux/spasm, Gastritis, Myocardial Infarction X-Ray, Labs, Meds, VS Vital Signs Date Time Temp Pulse Resp B/P (MAP) Pulse Ox O2 Delivery O2 Flow Rate FiO2 07/01/25 01:31 76 18 98 Room Air* 0 21 07/01/25 01:27 98 Room Air* 0 21 07/01/25 01:18 98.0 80 16 142/106 (118) 98 98.0 06/30/25 22:45 77 06/30/25 22:12 86 06/30/25 21:46 86 06/30/25 21:45 97.7 97 20 167/111 99 97.7 Lab Test 06/30/25 22:38 06/30/25 21:53 Range/Units Troponin I High Sensitivity < 3 L < 3 L </=34 ng/L White Blood Count 8.1 4.4-10.8 10^3/uL Red Blood Count 4.44 4.0-5.20 10^6/uL Hemoglobin 9.9 L 12.2-16.2 g/dL Hematocrit 31.5 L 36.0-46.0 % Mean Corpuscular Volume 71.0 L 80.0-100.0 fL Mean Corpuscular Hemoglobin 22.2 L 28.0-32.0 pg Mean Corpuscular Hemoglobin Concent 31.3 L 32.0-36.0 g/dL Red Cell Distribution Width 19.9 H 11.8-14.3 % Platelet Count 423 140-450 10^3/uL Mean Platelet Volume 7.4 6.9-10.8 fL Neutrophils (%) (Auto) 61.2 37.0-80.0 % Lymphocytes (%) (Auto) 29.2 10.0-50.0 % Monocytes (%) (Auto) 6.1 0.0-12.0 % Eosinophils (%) (Auto) 2.6 0.0-7.0 % Basophils (%) (Auto) 0.9 0.0-2.0 % Neutrophils # (Auto) 4.9 1.6-8.6 10 ^3/uL Lymphocytes # (Auto) 2.4 0.4-5.4 10 ^3/uL Monocytes # (Auto) 0.5 0-1.3 10 ^3/uL Eosinophils # (Auto) 0.2 0-0.8 10 ^3/uL Basophils # (Auto) 0.1 0-0.2 10 ^3/uL Nucleated Red Blood Cells 0.0 % Sodium Level 139 136-145 mmol/L Potassium Level 4.2 3.5-5.1 mmol/L Chloride Level 106 98-107 mmol/L Carbon Dioxide Level 25 20-31 mmol/L Anion Gap 8 5-15 Blood Urea Nitrogen 11 9-23 mg/dL Creatinine 0.92 0.550-1.02 mg/dL Glomerular Filtration Rate Calc 77 >90 mL/min BUN/Creatinine Ratio 12.0 10.0-20.0 Serum Glucose 90 74-106 mg/dL Calcium Level 9.5 8.7-10.4 mg/dL Time of 1ST Reevaluation: 22:07 Reevaluation 1ST: Unchanged Patient Education/Counseling: Diagnosis, Treatment Family Education/Counseling: No Family Present SEPSIS Sepsis Screen Date sepsis recognized/suspect: Jun 30, 2025 Time Sepsis recognized/suspect: 2146 Recent Procedure: No On Antibiotic Therapy: No Respiratory Rate >20: No Heart Rate >90: No Temp<36 C (96.8 F) or >38.3 C: No SBP <90 or MAP <65 mmHG: No New Acute Mental Status Change: No Is the patient on CPAP, BIPAP,: No Physician Orders Electrocardigram (07/01/25 00:49) Chest Xray 1 View (06/30/25 22:02) Vital Signs Date Time Temp Pulse Resp B/P (MAP) Pulse Ox O2 Delivery O2 Flow Rate FiO2 07/01/25 01:31 76 18 98 Room Air* 0 21 07/01/25 01:27 98 Room Air* 0 21 07/01/25 01:18 98.0 80 16 142/106 (118) 98 98.0 06/30/25 22:45 77 06/30/25 22:12 86 06/30/25 21:46 86 06/30/25 21:45 97.7 97 20 167/111 99 97.7 Laboratory Tests Test 06/30/25 21:53 White Blood Count 8.1 10^3/uL (4.4-10.8) Departure 1 Departure Time of Disposition: 00:05 Impression: Primary Impression: Atypical chest pain Disposition: HOME / SELF CARE / HOMELESS Condition: Stable Discharged With: Self Critical Care Note Critical Care Time?: No Stability Stability form required: No Heart Score Heart Score: Heart Score Response (Comments) Value History Slightly Suspicious 0 EKG Repolarization Disturb 1 Age 45-64 1 Risk Factors 1 or 2 risk factors 1 Troponin Normal limit 0 Total 3 I personally scribed for PARISH BARBOZA MD ([email or web address]) on 06/30/25 at 22:12. Electronically submitted by Curtis Sebastian ([email or web address]). PARISH BARBOZA MD Jun 30, 2025 22:12
[2025-06-30 22:14] LABS: Hematocrit 31.5 % (36.0-46.0); Mean Corpuscular Hemoglobin 22.2 pg (28.0-32.0); Mean Corpuscular Volume 71.0 fL (80.0-100.0)
[2025-06-30 22:16] LABS: Chloride 106 mmol/L (98-107); Potassium 4.2 mmol/L (3.5-5.1); Sodium 139 mmol/L (136-145)
[2025-06-30 22:17] LABS: Anion Gap 8 (5-15); Carbon Dioxide 25 mmol/L (20-31)
[2025-06-30 22:18] LABS: Calcium 9.5 mg/dL (8.7-10.4)
[2025-06-30 22:23] LABS: BUN/Creatinine Ratio 12.0 (10.0-20.0); Blood Urea Nitrogen 11 mg/dL (9-23); Glucose 90 mg/dL (74-106)
--- NOTE | 2025-06-30 22:56 | DVH ---
EXAM: XY CHEST XRAY 1 VIEW CLINICAL HISTORY: chest pain TECHNIQUE: Single AP view of the chest WID: COMPARISON: XY CHEST XRAY 1 VIEW on DOS: 04/15/25 FINDINGS: Lines and tubes: None Chest: The heart size and pulmonary vasculature is within normal limits. No pleural effusion, pneumothorax, or consolidation. The osseous structures are grossly intact. Chronic lateral mid right rib fracture deformities. IMPRESSION: 1. No acute cardiopulmonary abnormality.
[2025-07-01 01:18] VITALS: BP 142/106; TEMP 98
[2025-07-01 01:31] VITALS: PULSE 76; RESP 18; O2SAT 98
--- NOTE | 2025-07-01 03:52 | ECG ---
[facility] Test Date: 2025-06-30 Test Time: 22:45:39 Pat Name: DESMOND HANNAH Department: ED Room: Gender: F [place] Operator: POLLY : 1975 Requested By: PARISH BARBOZA Order Number: [id number] Reading MD: Wilbert Conti Measurements Intervals [place] Rate: 77 P: 64 RI: 126 QRS: 23 QRSD: 81 T: 71 QT: 382 QTc: 433 Interpretive Statements Sinus rhythm Abnormal R-wave progression, early transition Baseline wander in lead(s) V4 Electronically Signed On 07-04-2025 10:22:48 PDT by Wilbert Conti Please click the below link to view image of tracing.
--- NOTE | 2025-07-01 03:52 | ECG ---
[facility] Test Date: 2025-06-30 Test Time: 21:46:00 Pat Name: DESMOND HANNAH Department: ED Room: Gender: F Geospatial Extractor Analysis: lopez : 1975 Requested By: PARISH BARBOZA Order Number: [id number] Reading MD: Wilbert Conti Measurements Intervals [place] Rate: 86 P: 73 OK: 137 QRS: 36 QRSD: 75 T: 68 QT: 369 QTc: 442 Interpretive Statements Incomplete analysis due to missing data in precordial lead(s) Sinus rhythm Probable left atrial enlargement Probable anterior infarct, old Baseline wander in lead(s) I,III,aVL Missing lead(s): V4 Electronically Signed On 07-04-2025 10:22:32 PDT by Wilbert Conti Please click the below link to view image of tracing.
== END 2025-07-01 01:25 | disposition home or self-care (01) ==
LOC: ER 21:44
DX: R07.89 Other chest pain (principal); I10 Essential (primary) hypertension; F41.9 Anxiety disorder, unspecified; D64.9 Anemia, unspecified; Z79.899 Other long term (current) drug therapy; Z98.890 Other specified postprocedural states; Z88.8 Allergy status to other drugs, medicaments and biological substances
CPT/HCPCS: 36415; 71045; 80048; 84484; 85025; 93005

== ENCOUNTER 2025-07-30 07:40 | Emergency (ER) | payer MEDICAID ==
[~2025-07-30] VITALS: Ht 162.6 cm; Wt 61.5 kg
--- NOTE | 2025-07-30 08:37 | ED.PDOC ---
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 She describes the pain as similar to her menstrual cramps but is concerned about a possible since her cycle has not started. The pain is intermittent and non-radiating. The patient denies any associated vaginal bleeding, discharge, nausea, or vomiting. She has no history of recent abdominal surgery or trauma. She reports a normal colonoscopy was performed in March 2025 for rectal bleeding, which is not currently occurring. Patient's last menstrual cycle was 8 weeks ago. 160/111- BP reassessed. Patient did not take her BP medication this morning Amlodipine 5mg. Initial Vitals BP: 174/110 HR: 79 RR: 18 O2: 99% RA Temp: 97.8 F Past Medical History: HTN, anxiety, anemia Past Surgical History: Carpal tunnel, , right sided breast skin graft, right foot. Social History: Denies ETOH, smoking, and drug use. Allergies: Hydrochlorothiazide and Prochlorperazine noel: HPI: Poor Historian. REVIEW OF SYSTEMS: CONSTITUTIONAL: Denies acute: fever, diaphoresis, chills, generalized weakness. HEAD: Denies acute: headache, photophobia Eyes: Denies acute: Double vision, vision loss, eye pain, eye discharge. EARS: Denies acute: tinnitus, hearing loss, ear discharge, ear pain, THROAT: Denies acute: sore throat, swelling, difficulty swallowing , pain with swallowing, change in voice. NECK: Denies acute: neck pain, neck swelling, stiff neck. HEART: Denies acute : chest pain, palpitations, LUNGS: Denies acute: SOB, wheezing, cough, hemoptysis ABDOMEN: Denies acute: Nausea, Vomiting, diarrhea, melena , hematemesis, hematochezia SKIN: Denies acute: rash, redness, lesions, itchiness. EXTREMITIES: Denies acute: calf pain, numbness, tingling, weakness, denies pain in extremity. Denies acute: Low back pain. Neuro: Denies acute: focal neurological deficit, motor or sensory focal neurological deficit, tremors, seizure like activity, confusion, dizziness, change in mental status, loss of bowel or bladder function, cauda equina like symptoms. : Denies acute: dysuria, hematuria, flank pain, increase in urinary frequency. PSYCH: Denies acute: hallucination, suicidal ideation, homicidal ideation. FEMALE: Denies acute: abnormal vaginal bleeding, foul odor, unusual discharge. PHYSICAL EXAM: General: ----no----acute distress, awake and alert. Head: normocephalic, atraumatic. Neck: supple, trachea is midline, no swelling. Throat: Normal phonation. Eyes:, no erythema, no purulent discharge, no proptosis, no icterus. Heart: regular rate, regular rhythm, no significant murmur appreciated. Lungs: no apparent respiratory distress, Able to speak in full sentences. No wheezing, no rhonchi, no crackles. No stridors Clear to auscultation bilaterally. Abdomen: non tender to palpation, non distended, soft, no guarding, no rebound, + bowel sounds. Neuro: Awake, Alert, oriented to name, self, situation, follows commands GCS=15. Speech is normal. Skin: no petechia, no purpura, no cyanosis, non-pale, not jaundice. Lower extremities: --no - Pitting edema no deformity, no focal swelling, no calf TTP. Makes eye contact. moves all four extremities. Face: no apparent facial droop. Ambulating in the ED independently. ED COURSE: DISCLAIMER: This medical document was created using an electronic medical record system with voice recognition software and computerized dictation system. Although this document has been carefully reviewed, there might still be some phonetic and typographical errors. Occasional wrong-word or "sound-alike" substitutions may have occurred due to the inherent limitations of voice recognition software. These areas are purely typographical due to imperfections of the software programs and do not reflect any compromise in the patient's medical care. Please read the chart carefully and recognize, using context, where these substitutions have occurred. Chief Complaint: Pelvic Pain Time Seen by MD: 08:23 Reviewed Notes: Medications Allergies: Coded Allergies: Prochlorperazine (Verified Allergy, Unknown, 04/13/25) Uncoded Allergies: HYDROCHOLROTHIAZIDE (Allergy, Unknown, 07/30/25) Home Meds Active Scripts Ferrous Sulfate (FERROUS SULFATE) 325 Mg Tb, 1 TAB PO BID for 30 Days, #60 TAB 3 Refills Prov:MIHAELA SHOEMAKER NP 04/15/25 Dextromethorphan-Guaifenesin (Robitussin-Dm) 10 Ml Sr, 10 ML PO TID for 10 Days, #300 SYP Prov:JU BOSE MD 05/28/23 Azithromycin (Zithromax) 500 Mg Tab, 1 TAB PO DAILY for 5 Days, #5 TAB Prov:JU BOSE MD 05/28/23 Benzonatate (Tessalon Perles) 100 Mg Cap, 1 CAP PO TID PRN, #30 CAP 0 Refills Prov:MICHAEL MARSH 12/30/21 Amoxicillin & Pot Clavulanate (Amoxicillin/Potassium Cla) 875 Mg Tab, 1 TAB PO BID for 7 Days, #14 TAB 0 Refills Prov:MICHAEL MARSH 12/30/21 Oxycodone W/ Acetaminophen (Percocet 5/325MG) 1 Tab Tb, 1 TAB PO BID, #14 TAB Prov:ADOLFO STOLL MD 11/29/21 Benzonatate (Tessalon Perles) 100 Mg Cap, 1 CAP PO TID PRN, #30 CAP 0 Refills Prov:MICHAEL MARSH 11/11/21 Amoxicillin & Pot Clavulanate (Amoxicillin/Potassium Cla) 875 Mg Tab, 1 TAB PO BID for 10 Days, #20 TAB 0 Refills Prov:MICHAEL MARSH 11/11/21 Reported Medications Hydrocodone-Acetaminophen (Hydrocodone Bitartrate/AC 5-325 mg) 1 Tab Tab, 1 TAB PO TID, TAB 04/15/25 Hydroxyzine Hcl (Hydroxyzine Hcl) 25 Mg Tab, 1 TAB PO Q6HPRN PRN for anxiety 04/14/25 Tizanidine Hydrochloride (Tizanidine Hcl) 2 Mg Tab, 1 TAB PO TID 04/14/25 Amlodipine Besylate (Amlodipine Besylate) 5 Mg Tab, 1 TAB PO BID 04/14/25 Information Source: Patient Past Medical History PAST MEDICAL HISTORY: Anemia, Anxiety, HTN 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 Was a procedure done?: No Differential Diagnosis (WOODEN F[employer]ITURE POLISHER) Comments X-Ray, Labs, Meds, VS Vital Signs Date Time Temp Pulse Resp B/P (MAP) Pulse Ox O2 Delivery O2 Flow Rate FiO2 07/30/25 11:41 182/111 07/30/25 11:16 69 164/103 07/30/25 10:28 81 169/111 07/30/25 10:23 98.7 81 20 169/111 (130) 97 98.7 07/30/25 10:23 81 81 97 Room Air 07/30/25 07:42 97.8 79 18 174/110 99 97.8 Lab Test 07/30/25 08:35 07/30/25 08:22 07/30/25 08:21 Range/Units White Blood Count 8.5 4.4-10.8 10^3/uL Red Blood Count 4.87 4.0-5.20 10^6/uL Hemoglobin 11.5 L 12.2-16.2 g/dL Hematocrit 35.9 L 36.0-46.0 % Mean Corpuscular Volume 73.7 L 80.0-100.0 fL Mean Corpuscular Hemoglobin 23.5 L 28.0-32.0 pg Mean Corpuscular Hemoglobin Concent 31.9 L 32.0-36.0 g/dL Red Cell Distribution Width 23.4 H 11.8-14.3 % Platelet Count 337 140-450 10^3/uL Mean Platelet Volume 7.2 6.9-10.8 fL Neutrophils (%) (Auto) 73.6 37.0-80.0 % Lymphocytes (%) (Auto) 18.8 10.0-50.0 % Monocytes (%) (Auto) 5.0 0.0-12.0 % Eosinophils (%) (Auto) 2.1 0.0-7.0 % Basophils (%) (Auto) 0.5 0.0-2.0 % Neutrophils # (Auto) 6.2 1.6-8.6 10 ^3/uL Lymphocytes # (Auto) 1.6 0.4-5.4 10 ^3/uL Monocytes # (Auto) 0.4 0-1.3 10 ^3/uL Eosinophils # (Auto) 0.2 0-0.8 10 ^3/uL Basophils # (Auto) 0 0-0.2 10 ^3/uL Nucleated Red Blood Cells 0.0 % Sodium Level 140 136-145 mmol/L Potassium Level 3.9 3.5-5.1 mmol/L Chloride Level 108 H 98-107 mmol/L Carbon Dioxide Level 22 20-31 mmol/L Anion Gap 10 5-15 Blood Urea Nitrogen 8 L 9-23 mg/dL Creatinine 0.85 0.550-1.02 mg/dL Glomerular Filtration Rate Calc 84 >90 mL/min BUN/Creatinine Ratio 9.4 L 10.0-20.0 Serum Glucose 82 74-106 mg/dL Lactic Acid Level 0.7 0.4-2.0 mmol/L Calcium Level 9.4 8.7-10.4 mg/dL Total Bilirubin 0.6 0.2-1.0 mg/dL Aspartate Amino Transferase (AST) 26 13-40 U/L Alanine Aminotransferase (ALT) 21 7-40 U/L Alkaline Phosphatase 69 46-116 U/L Total Protein 8.0 5.7-8.2 g/dL Albumin 4.6 3.2-4.8 g/dL Urine Test Negative Negative Urine Color Light-yellow Yellow Urine Clarity Clear Clear Urine pH 6.0 5.0-9.0 Urine Specific [place] 1.013 1.001-1.035 Urine Protein Negative Negative Urine Ketones Trace Negative Urine Blood Negative Negative /uL Urine Nitrite Negative Negative Urine Bilirubin Negative Negative Urine Urobilinogen Normal Negative mg/dL Urine Leukocyte Esterase Negative Negative /uL Urine RBC <1 0 - 4 /hpf Urine Microscopic WBC 0-5 /HPF Urine Squamous Epithelial Cells Few <5 /hpf Urine Bacteria None seen None Seen /hpf Urine Glucose Normal Normal mg/dL Current Medications Medications (Trade) Dose Ordered Sig/Mahsa Route Start Time Stop Time Status Last Admin Labetalol HCl (Labetalol HCl) 5 mg ONCE ONCE IV 07/30/25 10:15 07/30/25 10:16 DC 07/30/25 10:28 Amlodipine Besylate (Norvasc Tablet) 5 mg ONCE ONCE PO 07/30/25 11:30 07/30/25 11:31 DC 07/30/25 11:[address] [address] Ph: [phone] DIAGNOSTIC IMAGING Diagnostic Imaging Report : [id number] Signed PATIENT: DESMOND HANNAHCCT: [id number] UNIT: [id number] : 1975 LOC: ER ROOM / BED: / AGE / SEX: 49 / F ADM STATUS: REG ER SERVICE 0755 ORDERING PHYSICIAN: MINDA TUCKER DO PROCEDURE(s): PELUS - PELVIC REASON: pelvic pain ORDER NUMBER(s): [id number], ACCESSION NUMBER(s): [id number] INDICATION: pelvic pain TECHNIQUE: Multiple real-time grayscale transabdominal transvaginal sonographic images along with color and duplex Doppler of the uterus and ovaries were obtained. COMPARISON: None FINDINGS: The uterus measures 11.4 x 7.5 x 4.6 cm. The endometrial stripe measures 0.82 cm. Appears heterogeneous anechoic in the fundus. It measures 2.3 x 0.8 by 2.9 cm. There is a 2nd heterogeneous intramural wall of the uterine body measuring 1.6 x 1.6 x 2.1 cm. Most likely representing a fibroid. There is a nabothian cyst measuring 9 mm. The right ovary measures 5 x 4.1 x 3.1 cm. Volume of the right ovary is 34.2 cc a 2.8 x 1.8 x 3.3 cm anechoic mass in the right ovary most likely follicle The left ovary measures 1.7 x 1.2 x 1.8 cm. Left ovarian volume is 2.19 cc. Anec hoic mass in the left ovary measuring 1.1 x 0.8 x 1.3 cm likely a follicle. cm. Subsequent color and duplex Doppler interrogation of the ovaries demonstrated symmetric vascular flow to both ovaries, though this does not exclude the possibility of torsion due to the dual blood supply. IMPRESSION: 1. Uterine fibroid measures 1.6 x 1.6 x 2.1 cm 2. Anechoic mass uterine fundus measures 2.3 x 0.8 x 2.5 cm 3. 9 mm nabothian cyst 4. Follicles in both ovaries ATED BY: CHANDA HIGH Jr., DO DICTATED DATE/TIME: 07/30/25 6946 SIGNED BY: CHANDA HIGH Jr., DO SIGNED DATE/TIME: 07/30/2556 CC: Time of 1ST Reevaluation: 08:29 Reevaluation 1ST: Unchanged Time of 2ND Reevaluation: 11:53 (Patient is very dissatisfied because we did not order serum beta-hCG.Our hospital system does not allow us to order this test if the patient is not . ) Patient Education/Counseling: Diagnosis, Treatment Family Education/Counseling: No Family Present Departure 1 Departure Time of Disposition: 10:26 Impression: Primary Impression: Pelvic cramping Additional Impressions: Hypertension Uterine fibroid Uterine mass Disposition: HOME / SELF CARE / HOMELESS Condition: Stable Additional Instructions: Additional instructions: Please read all instructions provided in this packet carefully. You MUST follow-up with your primary care/family doctor in 1 to 2 days. If you are unable to see your primary care/family doctor, please return to our emergency room for re-assessment and re-evaluation in 1 to 2 days. Return to the emergency room here in our facility or to the nearest ER [facility] if your symptoms change or worsen. CONSULTATIONS: you MUST Follow-up for consultation as soon as possible with: Dr. DARRELL Desir doctor in 1-2 days. Please call for appointment You MUST call the consultants office yourself to make an appointment. You may need to arrange that through your insurance and/or your primary/family doctor. If you are unable to see the automotive consultant in 1 to 2 days, you must return to our emergency room (or any other ER of your choice) for re-assessment and re- evaluation. Adequate fluid hydration. Although you have been discharged from the Emergency Department, this does not mean that you have a "clean bill of health". No definitive diagnosis for your symptoms has been made today. It is possible that you are in the process of developing a serious illness. This is why you must return to the ED without fail if any new or worsening symptoms develop. Monitoring blood pressure at home at least 3 times a day. Below is a copy of your radiological report for follow up: [address] [address] Ph: [phone] DIAGNOSTIC IMAGING Diagnostic Imaging Report : [id number] Signed PATIENT: DESMOND HANNAH ACCT: [id number] UNIT: [id number] : 1975 LOC: ER ROOM / BED: / AGE / SEX: 49 / F ADM STATUS: REG ER SERVICE 0755 ORDERING PHYSICIAN: MINDA TUCKER DO PROCEDURE(s): PELUS - PELVIC REASON: pelvic pain ORDER NUMBER(s): [id number], ACCESSION NUMBER(s): [id number] INDICATION: pelvic pain TECHNIQUE: Multiple real-time grayscale transabdominal transvaginal sonographic images along with color and duplex Doppler of the uterus and ovaries were obtained. COMPARISON: None FINDINGS: The uterus measures 11.4 x 7.5 x 4.6 cm. The endometrial stripe measures 0.82 cm. Appears heterogeneous anechoic in the fundus. It measures 2.3 x 0.8 by 2.9 cm. There is a 2nd heterogeneous intramural wall of the uterine body measuring 1.6 x 1.6 x 2.1 cm. Most likely representing a fibroid. There is a nabothian cyst measuring 9 mm. The right ovary measures 5 x 4.1 x 3.1 cm. Volume of the right ovary is 34.2 cc a 2.8 x 1.8 x 3.3 cm anechoic mass in the right ovary most likely follicle The left ovary measures 1.7 x 1.2 x 1.8 cm. Left ovarian volume is 2.19 cc. Anechoic mass in the left ovary measuring 1.1 x 0.8 x 1.3 cm likely a follicle. cm. Subsequent color and duplex Doppler interrogation of the ovaries demonstrated symmetric vascular flow to both ovaries, though this does not exclude the possibility of torsion due to the dual blood supply. IMPRESSION: 1. Uterine fibroid measures 1.6 x 1.6 x 2.1 cm 2. Anechoic mass uterine fundus measures 2.3 x 0.8 x 2.5 cm 3. 9 mm nabothian cyst 4. Follicles in both ovaries ATED BY: CHANDA HIGH Jr., DO DICTATED DATE/TIME: 07/30/25955 SIGNED BY: CHANDA HIGH Jr., SIGNED DATE/TIME: 07/30/25955 CC: Discharged With: Self Critical Care Note Critical Care Time?: No I personally scribed for MINDA TUCKER DO ([email or web address]) on 07/30/25 at 08:37. Electronically submitted by Eloina Tierney ([facility]). I personally scribed for MINDA TUCKER DO ([email or web address]) on 07/30/25 at 10:10. Electronically submitted by Eloina Tierney ([facility]). I personally scribed for MINDA TUCKER DO ([email or web address]) on 07/30/25 at 11:40. Electronically submitted by Eloina Tierney ([facility]). I personally scribed for MINDA TUCKER DO ([email or web address]) on 07/30/25 at 12:59. Electronically submitted by Eloina Tierney ([facility]). MINDA TUCKER DO Jul 30, 2025 08:37
[2025-07-30 08:41] LABS: Urine Protein, UAD Negative (Negative)
[2025-07-30 08:49] LABS: Hematocrit 35.9 % (36.0-46.0); Hemoglobin 11.5 g/dL (12.2-16.2); Mean Corpuscular Hemoglobin 23.5 pg (28.0-32.0); Mean Corpuscular Volume 73.7 fL (80.0-100.0); Nucleated Red Blood Cells % 0.0 %
[2025-07-30 09:30] LABS: Alanine Aminotransferase 21 U/L (7-40); Albumin 4.6 g/dL (3.2-4.8); Alkaline Phosphatase 69 U/L (46-116); Anion Gap 10 (5-15); BUN/Creatinine Ratio 9.4 (10.0-20.0); Calcium 9.4 mg/dL (8.7-10.4); Carbon Dioxide 22 mmol/L (20-31); Glucose 82 mg/dL (74-106); Potassium 3.9 mmol/L (3.5-5.1); Sodium 140 mmol/L (136-145); Total Protein 8.0 g/dL (5.7-8.2)
[2025-07-30 09:31] LABS: Bilirubin, Total 0.6 mg/dL (0.2-1.0)
[2025-07-30 09:34] LABS: Blood Urea Nitrogen 8 mg/dL (9-23); Chloride 108 mmol/L (98-107)
--- NOTE | 2025-07-30 09:58 | DVH ---
INDICATION: pelvic pain TECHNIQUE: Multiple real-time grayscale transabdominal transvaginal sonographic images along with col or and duplex Doppler of the uterus and ovaries were obtained. COMPARISON: None FINDINGS: The uterus measures 11.4 x 7.5 x 4.6 cm. The endometrial stripe measures 0.82 cm. Appears h eterogeneous anechoic in the fundus. It measures 2.3 x 0.8 by 2.9 cm. There is a 2nd heterogeneous intramural wall of the uterine body measuring 1.6 x 1.6 x 2.1 cm. Most l ikely representing a fibroid. There is a nabothian cyst measuring 9 mm. The right ovary measures 5 x 4.1 x 3.1 cm. Volume of the right ovary is 34.2 cc a 2.8 x 1.8 x 3.3 cm anechoic mass in the right ovary most likely follicle The left ovary measures 1.7 x 1.2 x 1.8 cm. Left ovarian volume is 2.19 cc. Anechoic mass in the left ovary measuring 1.1 x 0.8 x 1.3 cm likely a follicle. cm. Subsequent color and duplex Doppler interrogation of the ovaries demonstrated symmetric vascular flow to both ovaries, though this does not exclude the possibility of torsion due to the dual blood suppl y. IMPRESSION: 1. Uterine fibroid measures 1.6 x 1.6 x 2.1 cm 2. Anechoic mass uterine fundus measures 2.3 x 0.8 x 2.5 cm 3. 9 mm nabothian cyst 4. Follicles in both ovaries
[2025-07-30] MEDS: LABETALOL HCL 20 MG/4 ML VL IV ONE (10:28)
[2025-07-30 13:23] VITALS: BP 136/74; PULSE 77; RESP 18; TEMP 98; O2SAT 99
== END 2025-07-30 13:23 | disposition home or self-care (01) ==
LOC: ER 07:43
DX: I10 Essential (primary) hypertension (principal); D25.9 Leiomyoma of uterus, unspecified; R19.05 Periumbilic swelling, mass or lump; R10.84 Generalized abdominal pain; R10.20 Pelvic and perineal pain unspecified side; F41.9 Anxiety disorder, unspecified; Z79.891 Long term (current) use of opiate analgesic; Z79.899 Other long term (current) drug therapy
CPT/HCPCS: 36415; 76830; 76856; 80053; 81001; 81025; 83605; 84702; 85025; 96374